=== PATIENT | female | born 1985 | race African-American/Black ===

== ENCOUNTER 2022-06-20 10:36 | Emergency (ER) | payer SELFPAY ==
[2022-06-20] MEDS ORDERED: Ketorolac Tromethamine 30 MG/ML VIAL ONE (11:46)
== END 2022-06-20 11:54 | disposition home or self-care (01) ==
LOC: CSHERS 10:36
DX: M25.551 Pain in right hip (principal); M25.552 Pain in left hip
CPT/HCPCS: 96372; 99283; J1885

== ENCOUNTER 2024-01-28 10:48 | Emergency (ER) | payer BC | END 2024-01-28 11:28 | disposition home or self-care (01) | LOC: CSHERS 10:48 | DX: J01.90 Acute sinusitis, unspecified (principal); B96.89 Other specified bacterial agents as the cause of diseases classified elsewhere | CPT/HCPCS: 99283 ==